=== PATIENT | male | born 1955 | race Caucasian/White ===

== ENCOUNTER 2023-11-01 11:27 | Emergency (ER) | payer OTHER ==
[2023-11-01] MEDS ORDERED: Ondansetron PF 4 MG/2 ML Vial ONE (11:49)
[2023-11-01 12:16] LABS: #Monocytes 1.3 10x3/uL (0.0-1.1); #Neutrophils 5.2 10x3/uL (1.5-8.4); %Basophils 0.5 % (0.0-2.0); %Eosinophils 0.3 % (0.0-6.0); %Lymphocytes 14.4 % (18.0-47.0); %Neutrophils 67.4 % (40.0-75.0); Hematocrit 38.8 % (38.8-50.0); Hemoglobin 13.5 g/dL (13.5-17.5); Mean Corpuscular HGB CONC 34.8 g/dL (32.0-36.0); Mean Corpuscular Hemoglobin 28.5 pg (27.0-33.0); Mean Platelet Volume 8.9 fl (7.4-10.4); Platelet Count 182 10x3/uL (150-450); RBC Distribution Width 14.1 % (11.5-14.5); Red Blood Cell (RBC) Count 4.73 10x6/uL (4.32-5.72); White Blood Cell (WBC) Count 7.8 10x3/uL (3.5-10.5)
[2023-11-01 12:37] LABS: ALT (SGPT) 11 U/L (8-55); AST (SGOT) 19 U/L (5-34); Alkaline Phosphatase 68 U/L (40-110); Anion Gap 15 mmol/L (10-20); BUN (Urea Nitrogen) 18 mg/dL (8.4-25.7); Calc. Creatinine Clearance 0 mL/min (70-130); Calcium 8.3 mg/dL (7.8-10.44); Carbon Dioxide 19 mmol/L (23-31); Chloride 102 mmol/L (98-107); Estimated GFR 64; Globulin 2.6 g/dL (2.4-3.5); Glucose 148 mg/dL (80-115); Lipase 14 U/L (8-78); Magnesium 1.9 mg/dL (1.6-2.6); Protein, Total 6.6 g/dL (5.8-8.1); Sodium 132 mmol/L (136-145)
[2023-11-01 12:38] LABS: Troponin I Less than 0.010 ng/mL (< 0.028)
== END 2023-11-01 13:23 ==
LOC: EEVIPCON 11:27 → CSHERS 11:27
DX: S60.222A Contusion of left hand, initial encounter (principal); E11.9 Type 2 diabetes mellitus without complications; I10 Essential (primary) hypertension; W19.XXXA Unspecified fall, initial encounter
CPT/HCPCS: 70450; 71045; 72125; 80053; 83690; 83735; 83880; 84443; 84484; 85025; 93005; 96361; 96374; J2405

== ENCOUNTER 2023-11-09 09:35 | Emergency (ER) | payer OTHER ==
[2023-11-09] MEDS ORDERED: predniSONE 20 MG TAB ONE (09:53)
[2023-11-09] MEDS ORDERED: Ipratropium/Albuterol 3 ML NEB ONE (09:53)
[2023-11-09] MEDS ORDERED: Azithromycin 500 MG VIAL ONE (09:54)
[2023-11-09] MEDS ORDERED: cefTRIAXone (ROCEPHIN) 1 GM VIAL ONE (09:54)
[2023-11-09] MEDS ORDERED: Magnesium 2 GM/50 ML BAG (IN WATER) ONE (09:54)
[2023-11-09 10:11] LABS: Actual Bicarbonate (HCO3v) 24.6 mEq/L (22-28); Analyzer IN Cardio CS ER; Base Excess 2.8 mEq/L (-2 - +2); Calcium, Ionized (venous) 1.02 mmol/L (1.16-1.32); Chloride (VBG) 93 mmol/L (98-106); Hematocrit-VBG 39 % (42.0-52.0); Hemoglobin (Hb) 13.4 g/dL (12.6-17.4); Potassium (VBG) 3.25 mmol/L (3.70-5.30); Puncture Site Other Site; RapidComm Collect By er tech; Sodium 131 mmol/L (133-146); pH (venous) 7.536 (7.32-7.43)
[2023-11-09 10:34] LABS: #Basophils 0.1 10x3/uL (0.0-0.2); #Monocytes 1.7 10x3/uL (0.0-1.1); #Neutrophils 15.1 10x3/uL (1.5-8.4); %Basophils 0.4 % (0.0-2.0); %Eosinophils 0.2 % (0.0-6.0); %Lymphocytes 4.4 % (18.0-47.0); %Monocytes 9.2 % (0.0-10.0); %Neutrophils 84.1 % (40.0-75.0); Hematocrit 36.2 % (38.8-50.0); Hemoglobin 12.4 g/dL (13.5-17.5); Mean Corpuscular HGB CONC 34.3 g/dL (32.0-36.0); Mean Corpuscular Hemoglobin 28.1 pg (27.0-33.0); Mean Corpuscular Volume 82.1 fl (81.2-95.1); RBC Distribution Width 13.3 % (11.5-14.5); Red Blood Cell (RBC) Count 4.41 10x6/uL (4.32-5.72)
[2023-11-09 10:35] LABS: Platelet Count 536 10x3/uL (150-450)
[2023-11-09 10:40] LABS: INR-International Normal Ratio 1.1; PTT 27.9 sec (22.0-33.0); Prothrombin Time 11.6 sec (9.5-12.1)
[2023-11-09 10:48] LABS: ALT (SGPT) 24 U/L (8-55); AST (SGOT) 21 U/L (5-34); Albumin 3.5 g/dL (3.4-4.8); Alkaline Phosphatase 66 U/L (40-110); Anion Gap 16 mmol/L (10-20); BUN (Urea Nitrogen) 14 mg/dL (8.4-25.7); Bilirubin, Total 0.8 mg/dL (0.2-1.2); Calc. Creatinine Clearance 0 mL/min (70-130); Calcium 8.2 mg/dL (7.8-10.44); Carbon Dioxide 24 mmol/L (23-31); Chloride 94 mmol/L (98-107); Estimated GFR 95; Globulin 2.8 g/dL (2.4-3.5); Glucose 192 mg/dL (80-115); Magnesium 1.9 mg/dL (1.6-2.6); Potassium 3.8 mmol/L (3.5-5.1); Protein, Total 6.3 g/dL (5.8-8.1); Sodium 130 mmol/L (136-145)
[2023-11-09 10:49] LABS: Troponin I Less than 0.010 ng/mL (< 0.028)
[2023-11-09 11:19] LABS: D-Dimer Test 0.8 mg/L FEU (0.19-0.50)
[2023-11-09] MEDS ORDERED: Iopamidol 370 76% 100 ML VIAL ONE (11:29)
[2023-11-09 12:22] LABS: SARS-CoV-2 NAA Rapid Test Not Detected (NotDetected)
== END 2023-11-09 16:45 | disposition short-term general hospital (02) ==
LOC: CSHERS 09:35
DX: J18.1 Lobar pneumonia, unspecified organism (principal); A41.9 Sepsis, unspecified organism; R09.02 Hypoxemia; E11.9 Type 2 diabetes mellitus without complications; I10 Essential (primary) hypertension
CPT/HCPCS: 36415; 36416; 71045; 71275; 80053; 82805; 83605; 83735; 83880; 84484; 85025; 85379; 85610; 85730; 87040; 93005; 93010; 96374; 96375; J0456; J0696; J3475; J7512; J7620; Q9967